=== PATIENT | male | born 1980 | race Caucasian/White ===

== ENCOUNTER 2018-01-13 16:31 | Emergency (ER) | payer BC, MEDICAID ==
[2018-01-13 17:02] VITALS: BP 139/88
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
== END 2018-01-13 17:10 | disposition home or self-care (01) ==
LOC: UCEAST 16:31
DX: S16.1XXA Strain of muscle, fascia and tendon at neck level, initial encounter (principal); X58.XXXA Exposure to other specified factors, initial encounter; Y93.9 Activity, unspecified; Y92.9 Unspecified place or not applicable; Z88.6 Allergy status to analgesic agent; Z88.8 Allergy status to other drugs, medicaments and biological substances; Z87.891 Personal history of nicotine dependence
CPT/HCPCS: 99212; G0463

== ENCOUNTER 2018-07-29 11:13 | Emergency (ER) | payer BC, MEDICAID ==
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
--- NOTE | 2018-07-29 13:31 | ED ---
HPI Cardiac - HPI Summary HPI Summary: Pt presents w/ c/o productive cough, fatigue and mild sore and vomiting from coughing throat since . Cough is producing thick, yellow/green phelgm throughout the day. Has since developed headache, "hot/cold sweats". Denies nasal congestion, rhinorrhea, otalgia, difficulty breathing or swallowing but cough id keeping him up at night. Has been taking nyquil. He denies smoking/2nd hand smoke exposure, h/o asthma/copd/bronchitis. Denies chest pain, shortness of breath, hemoptysis, ab pain, diarrhea, rash, neck stiffness. States recent dx with bronchitis. - History of Current Complaint Chief Complaint: UCGeneralIllness Stated Complaint: HOT AND COLD SWEATS Time Seen by Provider: 07/29/18 12:00 Hx Obtained From: Patient Pain Intensity: 0 - Allergy/Home Medications Allergies/Adverse Reactions: Allergies Allergy/AdvReac Type Severity Reaction Status Date / Time gabapentin Allergy See Comment Verified 07/29/18 11:39 trazodone Allergy See Comment Verified 07/29/18 11:39 acetaminophen [From Tylenol] AdvReac GI Upset Verified 07/29/18 11:39 ibuprofen AdvReac GI Upset Verified 07/29/18 11:39 cat gut sutures Allergy infection; Uncoded 07/29/18 11:39 sutures don't dissolve PMH/Surg Hx/FS Hx/Imm Hx Previously Healthy: Yes Endocrine/Hematology History: Denies: Hx Diabetes, Autoimmune Disease Cardiovascular History: Denies: Hx Hypertension, Hx Pacemaker/ICD Respiratory History: Denies: Hx Asthma GI History: Reports: Hx Diverticulosis Musculoskeletal History: Reports: Hx Arthritis, Hx Back Problems Sensory History: Denies: Hx Hearing Aid Neurological History: Reports: Other Neuro Impairments/Disorders - brain injury- short term memory loss Psychiatric History: Reports: Hx Post Traumatic Stress Disorder, Other Psychiatric Issues/Disorders - etoh abuse-quit 2005 Denies: Hx Panic Disorder - Surgical History Surgery Procedure, Year, and Place: cholecystectomy 2010-[place]; [place]asectomy-2010 [place] Infectious Disease History: No Infectious Disease History: Denies: Traveled Outside the [place] in Last 30 Days - Family History Known Family History: Positive: None - Social History Occupation: Unemployed Lives: With Family Alcohol Use: None Alcohol Amount: no alcohool since 2004 Substance Use Type: Reports: None Substance Use Comment - Amount & Last Used: tramadol Hx Tobacco Use: Yes - not currently Smoking Status (MU): Former Smoker Type: Cigarettes Amount Used/How Often: 3 per day, trying to cut back Have You Smoked in the Last Year: Yes Review of Systems Positive: Fever, Chills, Fatigue Eyes: Negative Positive: Sore Throat. Negative: Ear Ache, Nasal Discharge Cardiovascular: Negative Positive: Cough. Negative: Shortness Of Breath Positive: Vomiting - d/t gagging from cough Positive: no symptoms reported Musculoskeletal: Negative Skin: Negative Positive: Headache. Negative: Weakness, Paresthesia, Numbness, Syncope, Slurred Speech Psychological: Normal All Other Systems Reviewed And Are Negative: Yes Physical Exam Triage Information Reviewed: Yes Vital Signs On Initial Exam: Initial Vitals Temp Pulse Resp BP Pulse Ox 100.4 F 83 18 121/84 97 07/29/18 11:40 07/29/18 11:40 07/29/18 11:40 07/29/18 11:40 07/29/18 11:40 Vital Signs Reviewed: Yes Appearance: Positive: No Pain Distress, Well-Nourished, Ill-Appearing - appears mildly fatigued Skin: Positive: Warm, Skin Color Reflects Adequate Perfusion, Dry - no rash, no sweats Head/Face: Positive: Normal Head/Face Inspection Eyes: Positive: Normal, EOMI, Conjunctiva Clear. Negative: Conjunctiva Inflammed, Discharge ENT: Positive: Hearing grossly normal, Pharyngeal erythema - cobblestoning - no edema, TMs normal, Sinus tenderness - TTP over frontal, Uvula midline. Negative : Nasal congestion, Nasal drainage, Tonsillar swelling, Tonsillar exudate, Trismus, Hoarse voice Neck: Positive: Supple, Nontender, No Lymphadenopathy Respiratory/Lung Sounds: Positive: Breath Sounds Present, Rales - possibly heard in Rt mid chest. Negative: Rhonchi, Stridor, Wheezes, Unable to speak in full sentences, Fatigue Cardiovascular: Positive: Normal, RRR, S1, S2. Negative: Murmur, Rub, Leg Edema Left, Leg Edema Right Abdomen Description: Positive: Nontender, No Organomegaly, Soft Bowel Sounds: Positive: Present Musculoskeletal: Positive: Normal, Strength/ROM Intact Neurological: Positive: Normal, Sensory/Motor Intact, Alert, Oriented to Person Place, Time, CN Intact II-III Psychiatric: Positive: Normal Diagnostics - Vital Signs Vital Signs Temp Pulse Resp BP Pulse Ox 07/29/18 11:40 100.4 F 83 18 121/84 97 - Laboratory Lab Statement: Any lab studies that have been ordered have been reviewed, and results considered in the medical decision making process. Disposition - Course Course Of Treatment: Influenza: neg. CXR: "Impression: Mild reticular nodule opacification of the right middle lobe and lower lobe. This suggests an airspace centered inflammatory or infectious process. Recommend follow-up until resolution to exclude underlying pulmonary parenchymal pathology.". Given patient's clinical presentation today, will treat for pneumonia and have him follow up closely with his PCP. Danger signs and symptoms of when to go to the emergency department discussed patient agrees with plan. NOTE: provided pt w/ XR report and advised to bring to f/u w/ Dr. Tsang for f/u care. - Diagnoses Provider Diagnoses: Bacterial pneumonia Discharge - Sign-Out/Discharge Documenting (check all that apply): Patient Departure All imaging exams completed and their final reports reviewed: Yes - Discharge Plan Condition: Stable Disposition: HOME Prescriptions: Levofloxacin TAB* [Levaquin TAB*] 750 mg PO DAILY #7 tab Patient Education Materials: Bacterial Pneumonia (ED) Referrals: Gege Tsang MD [Primary Care Provider] - Additional Instructions: Complete antibiotics as directed. Follow-up with Dr. Tsang Saturday for recheck. If worse, go to the ED. You may also take mucinex with lots of water to aid in movement of phlegm from your chest. For other symptoms (ie. sore throat, nasal congestion, etc), try the following: Nasal wash (netti pot or saline spray) & salt water throat gargles 2 x day Drink you body weight in ounces of water every day Sleep 8+ hours per night Avoid Dairy and sugar Hot herbal/decaf tea with lemon & honey Chicken broth (preferably organic, free range chicken) Humidifier in house, but especially near bed at night Keep home temperature at 68F or less to reduce dryness Use cough drops/throat lozenges Try a facial steam with or without eucalyptus essential oil or Adam's Vapor rub for congestion Avoid smoke, candles, perfumes, colognes, scented soaps/detergents , air fresheners and cleaning chemicals as these can cause airway irritation and trigger coughing Start Vitamin D3 5000iu and Vitamin C 1000mg every day x winter months Start probiotics in between antibiotics (ie. Yogurt and/or capsules of L. acidophilus, L. bifidus, L. casei, etc) - Billing Disposition and Condition Condition: STABLE Disposition: Home
[2018-07-29 14:08] VITALS: BP 112/76
== END 2018-07-29 13:55 | disposition home or self-care (01) ==
LOC: UCEAST 11:13
DX: J15.9 Unspecified bacterial pneumonia (principal); Z88.6 Allergy status to analgesic agent; Z88.8 Allergy status to other drugs, medicaments and biological substances; Z72.0 Tobacco use
CPT/HCPCS: 71046; 99212; G0463

== ENCOUNTER 2018-12-22 13:53 | Emergency (ER) | payer BC, MEDICAID ==
--- NOTE | 2018-12-22 13:59 | UC ---
General HPI - HPI Summary HPI Summary: 38 yo male presents with elevated BP and right ear pressure. He tells me that he was at his mental health appointment today and told his BP was elevated at 150s/90s. His provider told him to come to to have this evaluated. Pt says he has been having some dizziness intermittently over the last few months - this is not new. But over the last week or so has had some right ear pressure and popping. He states that he has some sinus inflammation and congestion "all the time". He has an appointment with his PCP later this week for a routine check. He denies headache, vision changes, weakness, SOB, chest pain, palpitations, n/v. - History of Current Complaint Stated Complaint: HIGH BLOOD PRESSURE Time Seen by Provider: 12/22/18 13:59 Hx Obtained From: Patient Current Severity: None - Allergy/Home Medications Allergies/Adverse Reactions: Allergies Allergy/AdvReac Type Severity Reaction Status Date / Time gabapentin Allergy See Comment Verified 12/22/18 14:11 trazodone Allergy See Comment Verified 12/22/18 14:11 acetaminophen [From Tylenol] AdvReac GI Upset Verified 12/22/18 14:11 ibuprofen AdvReac GI Upset Verified 12/22/18 14:11 cat gut sutures Allergy infection; Uncoded 12/22/18 14:11 sutures don't dissolve PMH/Surg Hx/FS Hx/Imm Hx Psychological History: Anxiety, Depression - Surgical History Surgical History: Yes Surgery Procedure, Year, and Place: cholecystectomy 2010-; vasectomy-2010 - Family History Known Family History: Positive: None - Social History Lives: With Family Alcohol Use: None Alcohol Amount: no alcohool since 2004 Substance Use Type: None Substance Use Comment - Amount & Last Used: tramadol Smoking Status (MU): Former Smoker Type: Cigarettes Amount Used/How Often: 3 per day, trying to cut back Have You Smoked in the Last Year: Yes Household Exposure Type: Cigarettes Review of Systems All Other Systems Reviewed And Are Negative: Yes Constitutional: Positive: Negative Skin: Positive: Negative Eyes: Positive: Negative ENT: Positive: Ear Ache Respiratory: Positive: Negative Cardiovascular: Positive: Negative Gastrointestinal: Positive: Negative Neurovascular: Positive: Negative Neurological: Positive: Negative Psychological: Positive: Negative Physical Exam - Summary Physical Exam Summary: GENERAL: NAD. WDWN. No pain distress. SKIN: No rashes, sores, ulcers, masses, lesions. HEENT: Head: AT/NC. No raccoon eyes or battles sign. Eyes: PERRLA. EOM intact. Conjunctiva clear without inflammation or discharge. Ears: Hearing grossly normal. TMs intact, no bulging, erythema, or edema. RIGHT TM with clear fluid behind. Nose: Nasal mucosa pink and moist. NTTP maxillary and frontal sinus. Throat: Posterior oropharynx without exudates, erythema, or tonsillar enlargement. Uvula midline. NECK: Supple. Nontender. FROM CHEST: CTAB. No r/r/w. No accessory muscle use. Breathing comfortably and in no distress. CV: RRR. Without m/r/g. Pulses intact. Brisk cap refill. MSK: FROM in B/L UEs and LEs with symmetric strength. NEURO: A&Ox3. 3 word recall, remote, recent memory, ability to follow 2-step directions, and attention intact. CN: II: Peripheral amaya intact. Vision normal. III, IV, : EOMI. No nystagmus. PERRLA. V: Sensations intact and symmetric. Opens mouth and clenches teeth. VII: No facial asymmetry. Forehead wrinkles. Grins, shuts eyes, frowns, puffs cheeks. VIII: Hearing intact to finger rub. IX, X: Swallows and coughs. Uvula midline. XI: Shrugs shoulders. Turns head against resistance. XII: No tongue deviation Ihkznc-[id number] are intact. Gait with normal base. Romberg: maintains balance, no pronator drift. Normal speech. No facial drooping. PSYCH: Age appropriate behavior. Triage Information Reviewed: Yes Vital Signs: Vital Signs: Temp Pulse Resp BP Pulse Ox 98 F 75 18 159/97 99 12/22/18 14:05 12/22/18 14:05 12/22/18 14:05 12/22/18 14:05 12/22/18 14:05 Vital Signs Reviewed: Yes Course/Dx - Course Course Of Treatment: Right serous otitis media. Elevated BP without dx of HTN - he has an appt with his PCP later this week. Advised to discuss this with them and to keep a BP journal daily to document his blood pressures over a period of time. - Diagnoses Provider Diagnosis: Right serous otitis media, Elevated blood pressure reading without diagnosis of hypertension Discharge - Sign-Out/Discharge Documenting (check all that apply): Patient Departure All imaging exams completed and their final reports reviewed: No Studies - Discharge Plan Condition: Stable Disposition: HOME Prescriptions: Fluticasone NASAL SPRAY 50MCG* [Flonase NASAL SPRAY 50MCG*] 2 spray BOTH NARES DAILY #1 btl Patient Education Materials: Low-Sodium Diet (ED), Serous Otitis Media (ED) Referrals: Darcy Gomez MD [Primary Care Provider] - Additional Instructions: If you develop a fever, shortness of breath, chest pain, new or worsening symptoms - please call your PCP or go to the ED. Please keep your appointment with your primary doctor for later this week to discuss your elevated blood pressure - Billing Disposition and Condition Condition: STABLE Disposition: Home
[2018-12-22 14:10] VITALS: BP 159/97
== END 2018-12-22 14:17 | disposition home or self-care (01) ==
LOC: UCEAST 13:53
DX: R03.0 Elevated blood-pressure reading, without diagnosis of hypertension (principal); H65.91 Unspecified nonsuppurative otitis media, right ear; Z87.891 Personal history of nicotine dependence; Z91.09 Other allergy status, other than to drugs and biological substances; Z88.8 Allergy status to other drugs, medicaments and biological substances
CPT/HCPCS: 99212; G0463